=== PATIENT | male | born 1950 | race Caucasian/White ===

== ENCOUNTER 2017-07-30 13:28 | Emergency (ER) | payer MEDICARE, BC ==
[~2017-07-30] VITALS: Ht 180.3 cm; Wt 72.6 kg
[~2017-07-30 13:28] MED LIST: ASPIRIN325 M1 PO; BACTRIM DS 8001 TA1 PO; CIPRO 500MG TA500 MG PO; CLINDAMYCIN300 MG PO; HYDROCODONE-APA1 TA1 PO; IBUPROFEN400 MG PO; LISINOPRIL HCTZ1 TAB PO; PRAVACHOL80 MG PO; ZOFRAN ODT4 MG PO
[2017-07-30] MEDS ORDERED: AUGMENTIN 875-1 EACH PO (14:30)
[2017-07-30] MEDS ORDERED: FLONASE 50 MCG16 GM (14:30)
--- NOTE | 2017-07-30 14:31 | [facility]gent Treatment [facility] Report ---
History of Present Issue Date/Time Seen by Provider 07/30/17 1424 Visit Reason Pt arrived:Walked Presenting Problem:PT C/O POSSIBLE SINUS INFECTION X1 WEEK Location if Accident: Onset of symptoms date/time:/ or onset unknown for:MEDICAL HX UNKNOWN Have you (or family members/close friends) recently traveled outside the [place]? N If Yes, where/when: Have you had exposure to infectious disease within the past month? TB? Other? Specify: Patient state that he has been fighting a sinus infection now for over a week State that he has sinus surgery about 2 years ago for chronic sinus infections but for the last week his drainage has continued to get thicker and changed colors from yellow to greenish brown and he is having the pressure under his eyes so he knew he needed to come in and get checked ALLERGIES Coded Allergies: No Known Allergies (07/30/17) Home Medications Reported Medications Pravastatin Sodium (Pravachol) 80 MG PO QHS LISINOPRIL/HYDROCHLOROTHIAZIDE (Lisinopril-Hctz 20-25 MG Tab) 1 TAB PO DAILY Aspirin 325 MG PO DAILY History Medical History General CAD? No Angina: Yes [place]: Yes Hypertension? Yes Hyperlipidemia? Yes CHF? No DVT? No PE? No COPD? No Asthma? No Anemia? No GERD? No Gastric ulcers? No GI Bleed? No Hernia? No Thyroid Problems? No Hypothyroidism? No CVA? No Seizures? No Diabetes? No Renal Insuffiency? No UTI? No Stones? No BPH? No GB Disease: No Nephritic Syndrome? No Asplenia? No Hepatitis? No Sickle Cell Disease? No Arthritis? No Migraines? No Cataracts? No Glaucoma? No MRSA? No HIV? No TB? No Anxiety? No Depression? No Cancer? No More? No Immunization HX DT/Tetanus 5-10 Years Ago Flu Refused Pneumonia Refuses Surgical Hx Previous Surgery?Y HEART CAT X 2 STENTS REMOVE NASAL POLYPS Family History Family HX Diabetes Yes CAD No Hypertension Yes Hyperlipidemia Yes Cancer No TB No Social History Smoking Hx Smoker: Never Smoker Tobacco: No Alcohol Alcohol: Yes Review of Systems All Other Systems Reviewed and Negative ENT ear pain, nose discharge, nose congestion. Physical Exam Vital Signs Vital Signs Date Time Temp Pulse Resp B/P Pulse O2 O2 Flow FiO2 Ox Delivery Rate 07/30 1348 98.1 62 18 124/78 98 General Appearance normal appearance, WD/WN, no apparent distress Ear, Nose, Throat sinus pain/drainage, nasal congestion, greenish brown drainage reported from nose, nares red inflamed Respiratory Status Yes: trachea midline, chest symmetrical, non tender chest. No: respiratory distress. 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 No Departure Departure Time of Disposition 1427 Disposition DC Home or Self Care(routine) Clinical Impression Primary Impression: Sinusitis Qualifiers: Sinusitis location: maxillary Chronicity: unspecified Qualified Code: J32.0 - Chronic maxillary sinusitis Condition STABLE Referrals [place] BERKOWITZ,Joel Nickerson (Family): 3 Days-Call Office Patient Instructions DI for Sinusitis, Sinus Headache, Sinusitis Additional Instructions * Monitor Temp. Tylenol and/or Ibuprofen as needed. ER if fever is no less than 101 despite alternating Tylenol and Ibuprofen * Encourage fluids, water, Gatorade, powerade, pedialyte if infant/toddler/or child * Warm salt water gargles for throat irritation *Warm fluids *Sore throat lozenges *Sleep elevated *humidifier or vaporizer *Flonase 2 sprays each nostril daily but may take 2-3 days to notice improvement with it Follow up IMMEDIATELY for new or worsening of symptoms OR no noticeable improvement over the next 48-72 hours. 911 immediately for any life threatening symptoms such as chest pain or difficulty breathing Discharge Counseling Counseled pt/family regarding diagnosis, test results, medications/RX, home care, follow up needs Prescriptions Current Visit Scripts Amoxicillin/Potassium Clav (Augmentin 875-125 Tablet) 1 EACH PO BID #14 TAB Fluticasone Propionate (Flonase 50 Mcg Nasal [place]) 2 SPRAY NA DAILY #1 BOT at 1431
[2017-07-30 14:42] VITALS: BP 124/78
== END 2017-07-30 14:42 | disposition home or self-care (01) ==
LOC: UTC 13:28
DX: J32.0 Chronic maxillary sinusitis (principal); I10 Essential (primary) hypertension; E78.5 Hyperlipidemia, unspecified; Z79.82 Long term (current) use of aspirin; Z79.899 Other long term (current) drug therapy; I25.2 Old myocardial infarction

== ENCOUNTER → 2017-09-28 | Outpatient (CLI) | payer MEDICARE, BC ==
[~2017-09-28] MED LIST changes: +AUGMENTIN 875-1 EACH PO; +FLONASE 50 MCG16 GM
[2017-09-28 14:23] LABS: LYMPH % 37.4 % (10-50)
[2017-09-28 14:39] LABS: BUN 14 mg/dL (7-18)
[2017-09-28 14:52] LABS: GFR (ESTIMATED) 97 ML/MIN (>60)
[2017-09-29 08:42] LABS: Prostate Specific Ag 1.9 ng/mL (0.0-4.0)
[2017-09-29 14:40] LABS: Microalbumin, Urine <3.0 ug/mL (Not Estab.)
== END ==
LOC: LAB 13:26
PROVIDERS: Emergency Medicine
DX: E11.9 Type 2 diabetes mellitus without complications (principal); E78.4 Other hyperlipidemia